=== PATIENT | male | born 1980 | race American Indian/Alaskan Native ===

== ENCOUNTER 2019-07-18 22:50 | Emergency (ER) | payer OTHER ==
[2019-07-19] MEDS ORDERED: IBUPROFEN 600 MG TAB PO ONE (02:27)
[2019-07-19] MEDS ORDERED: ACETAMINOPHEN 500 MG TAB PO ONE (02:27)
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
[2019-07-19 04:07] VITALS: BP 101/67
== END 2019-07-19 04:07 | disposition home or self-care (01) ==
LOC: ED 22:50
DX: S43.401A Unspecified sprain of right shoulder joint, initial encounter (principal); M54.5 Low back pain; M54.2 Cervicalgia; M62.830 Muscle spasm of back; M62.838 Other muscle spasm; F12.10 Cannabis abuse, uncomplicated; V49.49XA Driver injured in collision with other motor vehicles in traffic accident, initial encounter; Y93.89 Activity, other specified; Y92.89 Other specified places as the place of occurrence of the external cause; Y99.8 Other external cause status
CPT/HCPCS: 72040; 72100; 99283